=== PATIENT | male | born 1940 | race Caucasian/White ===

== ENCOUNTER 2016-10-28 13:37 | Emergency (ER) | payer MEDICARE ==
[~2016-10-28 13:37] MED LIST: ASPIRIN81 M1 PO; ASPIRIN81 M2 PO; CELEBREX PO; FENOFIBRATE160 MG PO; FLAXSEED OIL1000 M1 PO; GINKGO60 MG; GLUCOSAMINE500 M1; GNP B-COMPLEX1 EACH PO; LIPITOR PO; LOTREL 5/20 MG1 CAP PO; MULTIVITAMIN1 UDCAP; NEURONTIN100 MG PO; PRAVACHOL PO; PRILOSEC PO; SENNA S TABLET1 TAB PO; TRAMADOL HCL50 M2 PO; TRIGLIDE160 M1 PO; VIT B-12 PO; [UNRECOGNIZED DRUG - OTHER]
[2016-10-28] MEDS ORDERED: LOTREL 5-20 MG1 EACH (14:01)
== END 2016-10-28 15:08 | disposition home or self-care (01) ==
LOC: SED 13:37
DX: S61.512A Laceration without foreign body of left wrist, initial encounter (principal); Z88.2 Allergy status to sulfonamides; Z79.82 Long term (current) use of aspirin; Z79.899 Other long term (current) drug therapy; W26.0XXA Contact with knife, initial encounter; Y92.009 Unspecified place in unspecified non-institutional (private) residence as the place of occurrence of the external cause; Z23 Encounter for immunization
CPT/HCPCS: 12002; 90471; 90715; 99283